=== PATIENT | female | born 1960 | race Caucasian/White ===

== ENCOUNTER → 2017-12-27 | Outpatient (CLI) | payer SELFPAY ==
[~2017-12-27] MED LIST: ALBU90OI; Aspirin; FLUT44OIA; INSUASPI SC; INSULANPEN SC; NAPROXEN; OMEP20ER PO; ZYRTEC
== END | disposition home or self-care (01) ==
LOC: LAB EV 12:24
DX: J03.90 Acute tonsillitis, unspecified (principal)
CPT/HCPCS: 87070

== ENCOUNTER → 2019-02-08 | Outpatient (CLI) | payer OTHER | END | disposition home or self-care (01) | LOC: LAB 18:54 → LAB SHORT 18:54 | PROVIDERS: Nurse Practitioner | DX: Z01.419 Encounter for gynecological examination (general) (routine) without abnormal findings (principal) | CPT/HCPCS: G0145 ==

== ENCOUNTER 2019-05-16 18:57 | Emergency (ER) | payer OTHER ==
[~2019-05-16] VITALS: Ht 165.1 cm; Wt 128.4 kg
[2019-05-16] MEDS ORDERED: ALBU90OI6 INH (19:16)
[2019-05-16] MEDS ORDERED: Humalog100 UNIT/1 (19:16)
[2019-05-16] MEDS ORDERED: BASAGLAR K100 UNIT/1 SQ (19:17)
[2019-05-16] MEDS ORDERED: Flovent 110 MCG12 GM INH (19:17)
== END 2019-05-16 20:03 | disposition home or self-care (01) ==
LOC: ER 18:57
DX: M54.6 Pain in thoracic spine (principal); M54.5 Low back pain; V43.62XA Car passenger injured in collision with other type car in traffic accident, initial encounter; Z88.8 Allergy status to other drugs, medicaments and biological substances; Z88.1 Allergy status to other antibiotic agents; Z88.5 Allergy status to narcotic agent; Z79.4 Long term (current) use of insulin; Z79.899 Other long term (current) drug therapy; E11.9 Type 2 diabetes mellitus without complications; F32.9 Major depressive disorder, single episode, unspecified; K21.9 Gastro-esophageal reflux disease without esophagitis
CPT/HCPCS: 72070; 72100; 99283-25

== ENCOUNTER → 2019-11-22 | Outpatient (CLI) | payer OTHER ==
[~2019-11-22] MED LIST changes: +ALBU90OI6 INH; +BASAGLAR K100 UNIT/1 SQ; +Flovent 110 MCG12 GM INH; +Humalog100 UNIT/1
== END | disposition home or self-care (01) ==
LOC: LAB SHORT 17:35 → LAB EV 17:35
DX: J35.8 Other chronic diseases of tonsils and adenoids (principal)
CPT/HCPCS: 87081; 87147

== ENCOUNTER 2020-12-25 17:02 | Inpatient (IN) | payer OTHER ==
[~2020-12-25] VITALS: Ht 165.1 cm; Wt 131.5 kg
[2020-12-25 17:50] LABS: BASOPHILS ABSOLUTE AUTO 0.03 K/mm3 (0.00-0.23); BASOPHILS PERCENT AUTO 0 % (0-2); EOSINOPHILS ABSOLUTE AUTO 0.06 K/mm3 (0.00-0.68); EOSINOPHILS PERCENT AUTO 1 % (0-6); Hematocrit 41.7 % (33.0-51.0); Hemoglobin 12.5 g/dL (11.5-16.0); IMMATURE GRAN ABSOLUTE AUTO 0.06 K/mm3 (0.00-0.10); IMMATURE GRAN PERCENT AUTO 1 % (0-1); LYMPHOCYTES ABSOLUTE AUTO 2.31 K/mm3 (0.84-5.20); LYMPHOCYTES PERCENT AUTO 24 % (21-46); MONOCYTES ABSOLUTE AUTO 0.74 K/mm3 (0.16-1.47); MONOCYTES PERCENT AUTO 8 % (4-13); Mean Corpuscular HGB 26.9 pg (26.0-34.0); Mean Corpuscular Volume 90 fL (80-100); Mean Platelet Volume 11.7 fL (9.1-12.4); NEUTROPHILS ABSOLUTE AUTO 6.27 K/mm3 (1.96-9.15); NEUTROPHILS PERCENT AUTO 66 % (41-73); Platelet Count 264 K/mm3 (150-400); RDW Coefficient Variation 15.4 % (11.7-14.2); RDW Standard Deviation 50.9 fL (35.1-46.3); Red Blood Cell Count 4.64 M/mm3 (3.80-5.20); White Blood Cell Count 9.47 K/mm3 (4.00-11.30)
[2020-12-25 18:01] LABS: Albumin, Blood 2.8 g/dL (3.4-5.0); Albumin/Globulin Ratio 0.5 (0.8-1.8); Bilirubin, Total 0.4 mg/dL (0.1-1.0); Bun/Creatinine Ratio 13.9 (12.0-20.0); Calcium, Blood 9.7 mg/dL (8.5-10.1); Creatinine, Blood 1.15 mg/dL (0.40-1.00); Globulin, Blood 6.1 g/dL (2.2-4.0); Total Protein, Blood 8.9 g/dL (6.4-8.2); Troponin I 0.367 ng/mL (0.000-0.040)
[2020-12-25 18:37] LABS: Influenza A, PCR NEGATIVE (NEGATIVE); Influenza B, PCR NEGATIVE (NEGATIVE); Resp Syncytial Virus, PCR NEGATIVE (NEGATIVE)
[2020-12-25 18:38] LABS: SARS-Cov-2 (COVID-19) PCR, MMC POSITIVE (NEGATIVE)
[2020-12-25 18:40] LABS: D-Dimer, Quantitative 4.95 mg/L FEU (0.00-0.52); International Normalized Ratio 0.99; Prothrombin Time Results 10.6 Sec (9.7-11.5)
[2020-12-25] MEDS ORDERED: BASAGLAR K100 UNIT/7 SC (18:46)
[2020-12-25] MEDS ORDERED: CIME400 PO (18:48)
[2020-12-25] MEDS ORDERED: CITALOPRAM HBR20 M1 PO ×2 (18:48→22:05)
[2020-12-25] MEDS ORDERED: ADMELOG100 UNIT/2 SC (18:48)
--- NOTE | 2020-12-25 22:37 | NUR ---
ASSUMPTION OF CARE PATIENT ARRIVED TO ROOM AT 2039 VIA STRETCHER. STOOD AND PIVOT TRANSFERRED SELF TO BED. STEADY GAIT. 6L [address] WITH SATS 88-90%. PATIENT COUGHING WITH SCANT SECRETIONS. A/O, ORIENTED PATIENT TO ROOM AND SITUATION. EDUCATED REGARDING PLAN FOR O2 AND SAFETY. POSITIONED IN BED AND RT NOITIFIED OF PATIENT'S ARRIVAL. AT 2129 RT IS IN ROOM ADJUSTING O2 AND ATTEMPTING TO TRY HIGHER LEVELS OF O2 TO BRING O2 SATS UP. AIRVO PLACED AT 45L, 58% FIO2. SATS INCREASED TO 95%. ASSISTED PATIENT TO PRONE AT 2154, PATIENT TOLERATED UNTIL 2219 AND THEN WAS A STANDBY ASSIST TO BEDSIDE COMMODE. TOLERATED WELL, SATS DID NOT DROP BELOW 95% WITH AMBULATION. PATIENT STATED SHE WAS NOT SOB WHILE SITTING STRAIGHT UP. ASSISTED BACK TO BED AND PATIENT STATED SHE COULD NOT TOLERATED PRONING AGAIN, LAID ON FAR RIGHT SIDE. EDUCATED THAT WE WOULD TRY TO PRONE AGAIN IN ONE HOUR, PATIENT WAS EDUCATED REGARDING THE BENEFITS OF PRONING. PATIENT VERBALIZED UNDERSTANDING AND AGREED TO SECOND ATTEMPT. VITALS STABLE AT THIS TIME. CALL LIGHT IS IN REACH.
--- NOTE | 2020-12-26 | NUR ---
REASSESSMENT NO ACUTE CHANGES FROM INITIAL ASSESSMENT. PATIENT DANGLED AT SIDE OF BED AND ATE A JELLO. ATTEMPTED TO PRONE AGAIN BUT IS TOO UNCOMFORTABLE. LAID ON FAR LEFT SIDE. CONTINUING AND ENCOURAGING PATIENT TO PRONE. VITALS STABLE. AIRVO REMAINS AT 45L AND 58%. CALL LIGHT IN REACH.
--- NOTE | 2020-12-26 01:05 | NUR ---
UPDATE PATIENT TOO UNCOMFORTABLE TO PRONE WITH CHRONIC BACK AND SIDE PAIN. REPORTED TO DR. CALLOWAY, RECEIVED ORDERS FOR TYLENOL. REVIEWED ALLERGIES TO MEDICATIONS WITH PATIENT, PATIENT DENIED AN ALLERGY TO TYLENOL STATING SHE TAKES IT AT HOME WITH NO CONCERNS. LILIAM MARQUEZ H[employer]SE [employer]REKKING GUIDE REVIEWING CHART, ORDERED HOME MEDICATIONS AND REVIEWED PAIN MEDICATIONS. EDUCATED PATIENT ON PLAN TO TREAT PAIN AND ATTEMPT PRONING AGAIN. PATIENT IS UP IN CHAIR AT THIS TIME, SATS GREATER THAN 95%. WILL MEDICATE FOR PAIN WHEN PATIENT RETURNS TO BED. CALL LIGHT IN REACH.
--- NOTE | 2020-12-26 02:21 | NUR ---
POSITIONING PATIENT REMAINS UP IN CHAIR, DECLINES TO GO BACK TO BED. STATED TYLENOL HAS HELPED COMFORT. CONTINUED TO EDUCATED PATIENT REGARDING PRONING, PATIENT VERBALIZES UNDERSTANDING BUT PREFERS TO BE UP IN CHAIR AT THIS TIME. WILL MONITOR. CALL LIGHT IN REACH.
--- NOTE | 2020-12-26 04:00 | NUR ---
REASSESSMENT NO ACUTE CHANGES FROM PREVIOUS ASSESSMENT. PATIENT REMAINS UP IN CHAIR. USING CALL LIGHT APPROPRIATELY. STANDBY ASSIST TO BEDSIDE COMMODE FROM CHAIR. PATIENT WITH STEADY GAIT. 02 SATS MAINTAINED ABOVE 90% WITH ACTIVITY. AIRVO REMAINS 45L AND 58%, SATS CURRENTLY ABOVE 95% WHILE RESTING IN CHAIR. PATIENT CONTINUES TO DECLINE TO GO TO BED STATING SHE IS ABLE TO SLEEP WELL IN THE CHAIR. WILL CONTINUE TO MONITOR. CALL LIGHT IN REACH.
--- NOTE | 2020-12-26 06:11 | NUR ---
SHIFT SUMMARY PATIENT REMAINS UP IN CHAIR, AIRVO 45L AND 58%, SATS ABOVE 95% AT THIS TIME. PATIENT STATES SHE IS VERY COMFORTABLE IN THIS POSITION AND CAN BREATH MUCH BETTER THAN LAYING IN BED. NO ACUTE EVENTS THROUGH SHIFT. PATIENT COOPERATIVE AND PLEASANT WITH CARE. VITALS REMAINED STABLE THROUGH NIGHT. CONTINENT OF URINE. WILL CONTINUE TO MONITOR AND REPORT TO ONCOMING RN.
[2020-12-26 06:31] LABS: BASOPHILS ABSOLUTE AUTO 0.01 K/mm3 (0.00-0.23); BASOPHILS PERCENT AUTO 0 % (0-2); EOSINOPHILS PERCENT AUTO 0 % (0-6); Hematocrit 39.6 % (33.0-51.0); Hemoglobin 11.6 g/dL (11.5-16.0); IMMATURE GRAN ABSOLUTE AUTO 0.02 K/mm3 (0.00-0.10); IMMATURE GRAN PERCENT AUTO 0 % (0-1); LYMPHOCYTES ABSOLUTE AUTO 1.52 K/mm3 (0.84-5.20); LYMPHOCYTES PERCENT AUTO 23 % (21-46); MONOCYTES ABSOLUTE AUTO 0.33 K/mm3 (0.16-1.47); MONOCYTES PERCENT AUTO 5 % (4-13); Mean Corpuscular HGB 26.3 pg (26.0-34.0); Mean Corpuscular HGB Conc 29.3 g/dL (31.5-36.5); Mean Corpuscular Volume 90 fL (80-100); NEUTROPHILS ABSOLUTE AUTO 4.85 K/mm3 (1.96-9.15); NEUTROPHILS PERCENT AUTO 72 % (41-73); Platelet Count 265 K/mm3 (150-400); RDW Coefficient Variation 15.1 % (11.7-14.2); RDW Standard Deviation 50.1 fL (35.1-46.3); Red Blood Cell Count 4.41 M/mm3 (3.80-5.20); White Blood Cell Count 6.73 K/mm3 (4.00-11.30)
[2020-12-26 06:49] LABS: Alanine Aminotransfer (ALT/SGP 45 U/L (12-78); Albumin, Blood 2.3 g/dL (3.4-5.0); Albumin/Globulin Ratio 0.4 (0.8-1.8); Alk Phos 91 U/L (50-136); Anion Gap 5 mmol/L (6-16); Aspartate Aminotrans (AST/SGOT 49 U/L (12-37); Bilirubin, Total 0.3 mg/dL (0.1-1.0); Blood Urea Nitrogen 18 mg/dL (8-24); Bun/Creatinine Ratio 18.9 (12.0-20.0); CO2, Blood 27 mmol/L (21-32); Calcium, Blood 8.9 mg/dL (8.5-10.1); Chloride, Blood 106 mmol/L (98-108); Creatinine, Blood 0.95 mg/dL (0.40-1.00); Globulin, Blood 6.1 g/dL (2.2-4.0); Glomerular Filtration Rate >60 (60-); Glucose, Blood 194 mg/dL (70-99); Potassium, Blood 4.5 mmol/L (3.5-5.5); Sodium, Blood 138 mmol/L (136-145); Total Protein, Blood 8.4 g/dL (6.4-8.2)
[2020-12-26 14:09] LABS: C-REACTIVE PROTEIN, EXT RANGE 7.96 mg/dL (0.000-0.300)
--- NOTE | 2020-12-26 18:28 | NUR ---
SUMMARY PT IS A/O X4. ON AIRVO ALL DAY 50L 55%. SPO2 90-94%. PT STATES SOB SEEMS TO BE IMPROVING. PT HAS BEEN ONE PERSON STANDBY ASSIST TO BSC. PT IS ABLE TO DO MOST CARE WITHOUT DESATTING. CALLED LILIAM GARCIA WHO IS COVERING FOR [facility] TO REPORT POSITIVE BLOOD CULTURES THIS EVENING. NO SIGN OF DISTRESS. PT USES CALL LIGHT APPROPRIATELY.
--- NOTE | 2020-12-26 19:15 | NUR ---
ASSUMPTION OF CARE RECEIVED REPORT FROM MAYA MATHEWS. ASSUMED CARE OF PATIENT. PATIENT SITTING UP IN CHAIR, VITALS STABLE ON AIRVO 45L AND 55%. SATS ABOVE 95%. DENIES DISCOMFORTS. IVF INFUSING ORDERED. WILL REVIEW ORDERS AND TREAT PRESCRIBED. CALL LIGHT IN REACH.
--- NOTE | 2020-12-27 | NUR ---
REASSESSMENT NO ACUTE CHANGES FROM PREVIOUS ASSESSMENT. PATIENT DENIES DISCOMFORTS, CONTINUES TO SIT UP IN RECLINER STATING SHE IS VERY COMFORTABLE. FIO2 DECREASED TO 50% PER RT. SATS ABOVE 95%. VITALS STABLE. CALL LIGHT IN REACH.
[2020-12-27 03:56] LABS: C-REACTIVE PROTEIN, EXT RANGE 5.4 mg/dL (0.000-0.300)
--- NOTE | 2020-12-27 04:00 | NUR ---
REASSESSMENT NO ACUTE CHANGES FROM PREVIOUS ASSESSMENT. PATIENT REMAINS UP IN CHAIR. AIRVO SETTINGS 45L AND 50%. SATS ABOVE 95%. VITALS STABLE. CALL LIGHT IN REACH.
--- NOTE | 2020-12-27 06:12 | NUR ---
SHIFT SUMMARY NO ACUTE CHANGES THROUGH NIGHT. PATIENT REMAINED RESTING IN CHAIR COMFORTABLY. USES BEDSIDE COMMODE WITH RN ASSISTANCE. AIRVO 45L AND 50%. SATS REMAIN ABOVE 95%. VITALS STABLE THROUGH NIGHT. WILL CONTINUE TO MONITOR AND REPORT TO ONCOMING RN.
--- NOTE | 2020-12-27 07:15 | NUR ---
Assumed care of pt at 0700. Bedside report received from Nanette MATHEWS. Pt in airborne precautions due to COVID-19 with aerosolizing oxygen delivery device. SpO2 90% or greater with 45 LPM and 53% FiO2. Lungs diminished t/o. Pt's bedside table has several tissues that she expectorated into with clear sputum. SR per monitor. Pt sitting up in chair, likes to sleep in chair.
--- NOTE | 2020-12-27 09:56 | NUR ---
LAMICTAL / COZAAR During AM medication pass, this RN explained the medications the pt was receiving, including notations about formulary substitution. "You are getting lamotrigine, or lamictal. You are getting this twice a day because we don't have the extended release version, which you take at home". Pt nodded in agreeance. "You are getting losartan potassium, or cozaar. This is a substitution for candesartan, which you take at home"- pt stated this did not sound familiar. Pt does not take BP meds at home. This RN could not find this medication in med reconciliation. This medication held. This RN placed call to pharmacy to inquire about this medication as it was entered by pharmacy. Spoke to pharmacist, Jerri. Jerri stated she would investigate this matter. Jerri called back to notify that there were no provider orders for Cozaar or Lamictal for this patient and she would discontinue these medications. This RN notified patient that she has received two doses of lamotrigine although she does not take these at home. Notified pt that she may experiece drowsiness and we will continue to closely monitor her. Per Jerri simon, pt received a small dose of this medication and this medication will not interact with other medications pt is receiving.
--- NOTE | 2020-12-27 10:09 | NUR ---
AZITHROMYCIN Pt states allergy to erythromycin. This RN inquired what reaction she has. Pt stated she experiences vomiting. Notified pharmacist, Jerri. Plan to continue to administer medication. This matter discussed with patient, patient agreeable to receiving medication. States she will notify nurse if she feels nauseous. Patient inquires "What medication is in a Z-Pack?" This RN educates that the medication pt is receiving, azithromycin, is the medication in a Z-Pack. Pt states she had mild nausea without vomiting when she previously took a Z-Pack.
--- NOTE | 2020-12-27 17:36 | NUR ---
DR KNUTSON IN TO SEE PATIENT Discussed lamicatal given to patient. No new orders. Discussed biphasic T wave and new T wave inversion in V1. Inquired if provider would like troponin, EKG, or echocardiogram ordered. Provider stated no, becuase these changes are COVID related. Discusesd that pt has not had labs since yesterday morning. Provider gave orders for BMP now and tomorrow morning. Discussed with provider that pt has had high blood sugars. Reviewed solumedrol dosing. Provider changed insulin orders. Discussed that pt is having excellent PO intake of fluids, provider stated that IV fluids may be discontinued.
--- NOTE | 2020-12-27 18:19 | NUR ---
SUMMARY Pt remains on 45 LPM flow AirVO with 53% FiO2. SpO2 90% or greater. Pt remains in recliner. SR per monitor. BP stable. Will continue to closely monitor until care handoff and bedside report with oncoming RN.
[2020-12-27 18:33] LABS: Anion Gap 6 mmol/L (6-16); Blood Urea Nitrogen 29 mg/dL (8-24); Bun/Creatinine Ratio 34.9 (12.0-20.0); CO2, Blood 26 mmol/L (21-32); Calcium, Blood 9.3 mg/dL (8.5-10.1); Chloride, Blood 104 mmol/L (98-108); Creatinine, Blood 0.83 mg/dL (0.40-1.00); Glomerular Filtration Rate >60 (60-); Glucose, Blood 341 mg/dL (70-99); Potassium, Blood 4.7 mmol/L (3.5-5.5); Sodium, Blood 136 mmol/L (136-145)
--- NOTE | 2020-12-27 21:26 | NUR ---
ASSUMED CARE AT 1900 PT UP IN A CHAIR AND IS ALERT/ORIENTED AND IS ABLE TO MAKE HER NEEDS KNOWN. PT STATED TO HAVE SOME PAIN IN HER LT HIP THAT IS A CHRONIC ISSUE AND TAKES PRN TYLENOL AT HOME TO MANAGE. PRN TYLENOL GIVEN AND HELPFUL. SPO2 >95% ON AIRVO 45L, FIO2 45 %; SOME DYSPNEA ON EXERTION AND EXCESSIVE TALKING. AFIBRILE. HR 60-70'S. BP STABLE. BLE SHOW NON-PITTING, DEPENDENT EDEMA. PT ASKED FOR HALF A TURKEY SANDWICH AND TOLERATED WELL. SALINE LOCKED. SEE SHIFT ASSESSMENT FOR FULL ASSESSMENT.
[2020-12-28 03:57] LABS: Anion Gap 6 mmol/L (6-16); Blood Urea Nitrogen 32 mg/dL (8-24); Bun/Creatinine Ratio 38.4 (12.0-20.0); CO2, Blood 25 mmol/L (21-32); Calcium, Blood 8.9 mg/dL (8.5-10.1); Chloride, Blood 104 mmol/L (98-108); Creatinine, Blood 0.83 mg/dL (0.40-1.00); Glomerular Filtration Rate >60 (60-); Glucose, Blood 308 mg/dL (70-99); Potassium, Blood 4.9 mmol/L (3.5-5.5); Sodium, Blood 135 mmol/L (136-145)
--- NOTE | 2020-12-28 06:27 | NUR ---
END OF SHIFT SUMMARY PT SLEPT FOR ABOUT 6HRS IN CHAIR. PT ALERT/ORIENTED AND ABLE TO MAKE NEEDS KNOWN. SPO2 >90% ON AIRVO 45L, FIO2 36%. HR 50-70. SBP 110-140. PT SALINE LOCKED. PT WAS ABLE TO TOLERATE HALF A TURKEY SANDWICH. WILL REPORT TO AM RN WHEN AVAILABLE.
--- NOTE | 2020-12-28 07:07 | NUR ---
Assumed care of pt at 0700. Bedside report recevied from Cornelia MATHEWS. Pt A&O x 4. Answers questions. Follows commands. Verbalizes needs. Pleasant and cooperative with care. SpO2 90% or greater with AirVO at 40L and 36% FiO2. Lungs diminished t/o. Sinus bradycardia per monitor with HR between 45 and 55. BP stable. Pt sitting up in recliner. Call light in reach.
--- NOTE | 2020-12-28 07:16 | NUR ---
Respiratory therapist in to see pt. States he took patient off AirVo and placed her on high flow nasal cannula with 8 LPM.
--- NOTE | 2020-12-28 09:30 | NUR ---
Dr Kasper in to see patient. Discussed pt's oxygen requirements. States pt is acceptable for medical floor status with telemetry.
--- NOTE | 2020-12-28 13:27 | NUR ---
12/28/20- per chart review with Dr. Kasper, pt is off of Airvo and has been placed on O2-8L. He feels that she has improved enought to be moved out of ICU and onto the medical floor. She is still on airborne precautions due to positive COVID. No est ETA for d/c at this time. -mone
--- NOTE | 2020-12-28 19:37 | NUR ---
SUMMARY No acute changes this shift. Pt is now medical floor status with telemetry. SR per monitior. Pt remains in recliner as this is where she is most comfortable. Mobility increased compared to previous day shift. Pt remains on 8 LPM NC. SpO2 90% or greater. Report given to oncoming RNJacob.
--- NOTE | 2020-12-28 20:00 | NUR ---
ASSUMED CARE OF PT AT 1915. REPORT RECEIVED. PT PRESENTS SITTING UP IN BEDSIDE RECLINER CHAIR. PT ALERT AND ORIENTED. PLEASANT AND COOPERATIVE WITH CARE AND ASSESSMENT. UP TO BEDSIDE COMMODE WITH MINIMAL ASSIST OTHER THAN LINES AND CORDS. PT VOIDS Q.S. DOES HAVE MILD EXERTIONAL DYSPNEA. OCCASSIONAL MOIST COUGH WITH CLEAR SECRETIONS. WILL REVIEW CHART AND PLAN OF CARE FOR THIS PT.
--- NOTE | 2020-12-28 23:55 | NUR ---
PT STATES SHE PREFERS TO SLEEP IN RECLINER CHAIR. THIS IS WHAT SHE DOES AT HOME. HAD COMPLAINT OF HER SIDE AND HIP HURTING. REQUESTED AND RECEIVED TYLENOL. NO FURTHER COMPLAINTS RECEIVED. PT UP TO BEDSIDE COMMODE SEVERAL TIMES THIS EVENING WHERE SHE HAS VOIDED Q.S. PT NEEDS ONLY ASSIST WITH CORDS AND LINES FOR TRANSFER. WILL CONTINUE TO MONITOR.
[2020-12-29 03:59] LABS: BASOPHILS ABSOLUTE AUTO 0.01 K/mm3 (0.00-0.23); BASOPHILS PERCENT AUTO 0 % (0-2); EOSINOPHILS PERCENT AUTO 0 % (0-6); Hematocrit 36.8 % (33.0-51.0); Hemoglobin 11.1 g/dL (11.5-16.0); IMMATURE GRAN ABSOLUTE AUTO 0.08 K/mm3 (0.00-0.10); IMMATURE GRAN PERCENT AUTO 1 % (0-1); LYMPHOCYTES ABSOLUTE AUTO 1.43 K/mm3 (0.84-5.20); LYMPHOCYTES PERCENT AUTO 13 % (21-46); MONOCYTES ABSOLUTE AUTO 0.52 K/mm3 (0.16-1.47); MONOCYTES PERCENT AUTO 5 % (4-13); Mean Corpuscular HGB 26.2 pg (26.0-34.0); Mean Corpuscular HGB Conc 30.2 g/dL (31.5-36.5); Mean Corpuscular Volume 87 fL (80-100); NEUTROPHILS ABSOLUTE AUTO 8.95 K/mm3 (1.96-9.15); NEUTROPHILS PERCENT AUTO 82 % (41-73); Platelet Count 272 K/mm3 (150-400); RDW Coefficient Variation 14.8 % (11.7-14.2); RDW Standard Deviation 47.6 fL (35.1-46.3); Red Blood Cell Count 4.24 M/mm3 (3.80-5.20); White Blood Cell Count 10.99 K/mm3 (4.00-11.30)
[2020-12-29 04:15] LABS: Albumin, Blood 2.3 g/dL (3.4-5.0); Albumin/Globulin Ratio 0.4 (0.8-1.8); Alk Phos 73 U/L (50-136); Anion Gap 5 mmol/L (6-16); Aspartate Aminotrans (AST/SGOT 39 U/L (12-37); Bilirubin, Total 0.4 mg/dL (0.1-1.0); Blood Urea Nitrogen 37 mg/dL (8-24); Bun/Creatinine Ratio 41.4 (12.0-20.0); CO2, Blood 28 mmol/L (21-32); Calcium, Blood 9.1 mg/dL (8.5-10.1); Chloride, Blood 103 mmol/L (98-108); Creatinine, Blood 0.89 mg/dL (0.40-1.00); Globulin, Blood 5.2 g/dL (2.2-4.0); Glomerular Filtration Rate >60 (60-); Glucose, Blood 207 mg/dL (70-99); Lactate Dehydrogenase (Ld),Bld 278 U/L (100-240); Potassium, Blood 4.8 mmol/L (3.5-5.5); Sodium, Blood 136 mmol/L (136-145); Total Protein, Blood 7.5 g/dL (6.4-8.2)
[2020-12-29 05:05] LABS: Alanine Aminotransfer (ALT/SGP 49 U/L (12-78)
--- NOTE | 2020-12-29 06:30 | NUR ---
PT REMAINS IN THE BEDSIDE RECLINER CHAIR THROUGHOUT THE NIGHT. NO COMPLAINTS OF INCREASED DYSPNEA. CALLS FOR ASSIST TO GET UP TO BEDSIDE COMMODE. VOIDS Q.S. WILL CONTINUE TO MONITOR PT, AND WILL REPORT OFF TO ONCOMING RN.
--- NOTE | 2020-12-29 16:00 | NUR ---
Dr Butcher in to see patient. Provider states pt may be taken off telemetry. Provider gives no additional orders. States discharge can be considered when O2 requirements are less than 3 liters.
--- NOTE | 2020-12-29 18:26 | NUR ---
SUMMARY No acute changes to initial assessment. Pt is medical floor status, now without telemetry ordered. Pt on 4.5 LPM which is a decrease from 5 LPM at beginning of shift. Lungs diminished t/o. Very little sputum produced compared to previous day shifts. Pt in increasing in strength and only requires cord/line managment for toileting and ADLs. Will continue to closely monitor until care handoff and bedside report with oncoming RN.
--- NOTE | 2020-12-30 06:23 | NUR ---
SHIFT SUMMARY NO ACUTE CHANGES THIS SHIFT. PT A&OX4. SP02>92% ON 4.5L HIFLO NC. PT HAD MILD SOB W/ EXERTION. VSS. PT UP TO BEDSIDE COMMODE WITH MINIMAL HELP FOR LINE MANAGEMENT. PT C/O OF LL ABDOMINAL PAIN, BUT DENIED MEDICATION. STATES SHE WILL TAKE A TYLENOL IF IT GETS TO THAT POINT. PT SLEPT T/O NIGHT IN RECLINER, PT STATES SHE BREATHES BETTER IN CHAIR. AT ONE POINT, PT WAS SLEEPING AND DESATTED TO 86%. UPON ENTERING PT ROOM, NC WAS HANGING AROUND NECK OUT OF NARES. REPLACED AND PT INCREASED TO 94%. PT USES CALL LIGHT APPROPRIATELY. CALL LIGHT IN REACH. WILL GIVE REPORT TO ONCOMING NURSE.
--- NOTE | 2020-12-30 08:00 | NUR ---
PT UP INDEPENDENT WITH SBA IN HER ROOM. PT ON 4L/NC TOLERATING WELL. LUNGS DIMINISHED T/O. GOOD BOWEL TONES,URINE OUTPUT,HEART TONES AND RHYTHM. PT WITH SOME EDEMA TO LOWER EXTREMITIES. SHE STATES SHE REALIZES THAT SITTING UP IN THE CHAIR SLEEPING IS CAUSING SOME OF THIS AND WILL WORK ON PUTTING HER LEGS UP. BLOOD SUGARS REMAIN ELEVATED, COVERAGE INDICATED. PT TALKED WITH IN REGARDS TO GOING HOME LATER IF SHE TOLERATES THE OXYGEN BEING TITRATED DOWN TO LESS THAN 3L/NC. SHE SEEMS EXCITED, AT LEAST LOOKING FORWARD TO GOING HOME AND BEING INDEPENDENT.
--- NOTE | 2020-12-30 09:00 | NUR ---
CONTACTED IN REGARDS TO PATIENTS IV'S LEAKING AND NOT R/S R/T POSSIBILITY OF GOING HOME TODAY. ORAL ANTIBIOTIC ORDER RECEIVED. PT HAPPY WITH NOT HAVING IV'S RESTARTED. DOING WELL ON NASAL CANNULA.
--- NOTE | 2020-12-30 10:00 | NUR ---
PT UP INDEPEDENTLY WITH SBA TO BSC AND SINK IN HER OWN ROOM. PT ALWAYS ASKS FIRST, REMAINS ON NASAL CANNULA, DOWN TO 3L. TOLERATING WELL.
--- NOTE | 2020-12-30 12:00 | NUR ---
PT CONTINUES TO DO WELL ON N/C. SHE IS DOWN TO 2L AND TOLERATING WELL. SHE DOES STATE THAT SHE IS FEELING A LITTLE SHORT OF BREATH ON LESS, BUT IS DOING OK. LUNGS REMAIN DIMINISHED THROUGHOUT,DRY COUGH PRESENT.
--- NOTE | 2020-12-30 14:00 | NUR ---
ORDERS RECEIVED FOR PATIENT TO BE DISCHARGED HOME WITH OXYGEN. HOME O2 STUDY TO BE COMPLETED. PT HAPPY WITH DECISION TO GO HOME.
--- NOTE | 2020-12-30 16:00 | NUR ---
HOME OXYGEN CYLINDER DELIVERED HERE, PT GIVEN INSTRUCTIONS ON USE,DISCHARGE INSTRUCTIONS GIVEN TO PATIENT, QUESTIONS ANSWERED. PT REMOVED FROM MONITORS, TOLD TO GET DRESSED, LET ME KNOW IF SHE NEEDS ANYTHING. WILL AWAIT FOR RIDE.
--- NOTE | 2020-12-30 17:00 | NUR ---
PT GOT IN TO WHEELCHAIR, HAD HER BELONGINGS,ROOM CHECKED FOR LEFTOVERS, TEO TOOK HER TO HER WHO WAS WAITING IN THE CAR.
== END 2020-12-30 16:51 | disposition home or self-care (01) | DRG 871 ==
LOC: ER 17:02 → ICUE 19:00 → ERHOLD 19:00 → ICUE 20:30
PROVIDERS: Emergency Medicine; Hospitalist; Internal Medicine; Nurse Practitioner Acute Care; ADMIT Internal Medicine
PROC: XW033E5 Introduction of Remdesivir Anti-infective into Peripheral Vein, Percutaneous Approach, New Technology Group 5 (ICD-10-PCS; principal; 2020-12-25)
PROC: XW033E5 Introduction of Remdesivir Anti-infective into Peripheral Vein, Percutaneous Approach, New Technology Group 5 (ICD-10-PCS; 2020-12-26)
PROC: XW033E5 Introduction of Remdesivir Anti-infective into Peripheral Vein, Percutaneous Approach, New Technology Group 5 (ICD-10-PCS; 2020-12-27)
PROC: XW033E5 Introduction of Remdesivir Anti-infective into Peripheral Vein, Percutaneous Approach, New Technology Group 5 (ICD-10-PCS; 2020-12-28)
PROC: XW033E5 Introduction of Remdesivir Anti-infective into Peripheral Vein, Percutaneous Approach, New Technology Group 5 (ICD-10-PCS; 2020-12-29)
DX: A41.89 Other specified sepsis (principal); U07.1 COVID-19; J12.82 Pneumonia due to coronavirus disease 2019; J96.01 Acute respiratory failure with hypoxia; Z68.42 Body mass index [BMI] 45.0-49.9, adult; J45.901 Unspecified asthma with (acute) exacerbation; Z79.4 Long term (current) use of insulin; E11.51 Type 2 diabetes mellitus with diabetic peripheral angiopathy without gangrene; E66.01 Morbid (severe) obesity due to excess calories; F32.9 Major depressive disorder, single episode, unspecified; K21.9 Gastro-esophageal reflux disease without esophagitis; E11.65 Type 2 diabetes mellitus with hyperglycemia; T38.0X5A Adverse effect of glucocorticoids and synthetic analogues, initial encounter; Y92.230 Patient room in hospital as the place of occurrence of the external cause
CPT/HCPCS: 0241U; 36415; 71045; 80048; 80053; 82550; 82728; 82947; 83605; 83615; 83880; 84484; 85025; 85379; 85610; 85730; 86140; 87040; 93005; 93010; 94640; 94761; 99285-25; A9270; J0690; J0696; J1650; J2920; J2930; J3010; J7030; J7050

== ENCOUNTER 2021-05-13 23:07 | Emergency (ER) | payer OTHER ==
[~2021-05-13] VITALS: Ht 165.1 cm; Wt 136.1 kg
[~2021-05-13 23:07] MED LIST changes: +ADMELOG100 UNIT/2 SC; +BASAGLAR K100 UNIT/7 SC; +CIME400 PO; +CITALOPRAM HBR20 M1 PO
[2021-05-14 00:23] LABS: BASOPHILS ABSOLUTE AUTO 0.06 K/mm3 (0.00-0.23); BASOPHILS PERCENT AUTO 1 % (0-2); EOSINOPHILS ABSOLUTE AUTO 0.53 K/mm3 (0.00-0.68); EOSINOPHILS PERCENT AUTO 4 % (0-6); Hematocrit 36.5 % (33.0-51.0); Hemoglobin 11.1 g/dL (11.5-16.0); IMMATURE GRAN ABSOLUTE AUTO 0.05 K/mm3 (0.00-0.10); IMMATURE GRAN PERCENT AUTO 0 % (0-1); LYMPHOCYTES ABSOLUTE AUTO 3.24 K/mm3 (0.84-5.20); LYMPHOCYTES PERCENT AUTO 27 % (21-46); MONOCYTES ABSOLUTE AUTO 0.76 K/mm3 (0.16-1.47); MONOCYTES PERCENT AUTO 6 % (4-13); Mean Corpuscular HGB 27.5 pg (26.0-34.0); Mean Corpuscular HGB Conc 30.4 g/dL (31.5-36.5); Mean Corpuscular Volume 91 fL (80-100); Mean Platelet Volume 11.3 fL (9.1-12.4); NEUTROPHILS ABSOLUTE AUTO 7.38 K/mm3 (1.96-9.15); NEUTROPHILS PERCENT AUTO 61 % (41-73); Platelet Count 284 K/mm3 (150-400); RDW Coefficient Variation 15.8 % (11.7-14.2); RDW Standard Deviation 52.5 fL (35.1-46.3); Red Blood Cell Count 4.03 M/mm3 (3.80-5.20); White Blood Cell Count 12.02 K/mm3 (4.00-11.30)
[2021-05-14 00:44] LABS: Alanine Aminotransfer (ALT/SGP 18 U/L (12-78); Albumin/Globulin Ratio 0.5 (0.8-1.8); Alk Phos 79 U/L (50-136); Anion Gap 4 mmol/L (6-16); Aspartate Aminotrans (AST/SGOT 15 U/L (12-37); Bilirubin, Total 0.3 mg/dL (0.1-1.0); Blood Urea Nitrogen 14 mg/dL (8-24); CO2, Blood 30 mmol/L (21-32); Calcium, Blood 9.9 mg/dL (8.5-10.1); Chloride, Blood 101 mmol/L (98-108); Creatinine, Blood 0.93 mg/dL (0.40-1.00); Globulin, Blood 5.7 g/dL (2.2-4.0); Glomerular Filtration Rate >60 (60-); Glucose, Blood 120 mg/dL (70-99); Potassium, Blood 4.4 mmol/L (3.5-5.5); Sodium, Blood 135 mmol/L (136-145); Total Protein, Blood 8.7 g/dL (6.4-8.2)
[2021-05-14] MEDS ORDERED: ONDA4ODT MM (04:56)
== END 2021-05-14 05:23 | disposition home or self-care (01) ==
LOC: ER 23:07
PROVIDERS: Physician Assistant
DX: T67.5XXA Heat exhaustion, unspecified, initial encounter (principal); E11.9 Type 2 diabetes mellitus without complications; Z79.4 Long term (current) use of insulin; Z88.1 Allergy status to other antibiotic agents; Z88.5 Allergy status to narcotic agent; Z79.899 Other long term (current) drug therapy
CPT/HCPCS: 71046; 80053; 85025; 96361; 96374; 96375; 99284-25; A9270; J2405; J2550; J7030

== ENCOUNTER → 2021-08-08 | Outpatient (CLI) | payer OTHER ==
[~2021-08-08] MED LIST changes: +ONDA4ODT MM
== END ==
LOC: LAB SHORT 13:21 → LAB 13:21
DX: N95.0 Postmenopausal bleeding (principal); N85.8 Other specified noninflammatory disorders of uterus; Z88.8 Allergy status to other drugs, medicaments and biological substances; Z88.5 Allergy status to narcotic agent; Z88.1 Allergy status to other antibiotic agents
CPT/HCPCS: 88305

== ENCOUNTER 2023-01-22 02:28 | Day surgery (SDC) | payer OTHER | END 2023-01-22 23:16 | disposition home or self-care (01) | LOC: WOUND 02:28 | DX: E11.622 Type 2 diabetes mellitus with other skin ulcer (principal); L97.812 Non-pressure chronic ulcer of other part of right lower leg with fat layer exposed; I87.2 Venous insufficiency (chronic) (peripheral); L97.822 Non-pressure chronic ulcer of other part of left lower leg with fat layer exposed; J45.909 Unspecified asthma, uncomplicated; I10 Essential (primary) hypertension | CPT/HCPCS: G0463 ==

== ENCOUNTER 2023-01-29 02:21 | Day surgery (SDC) | payer OTHER | END 2023-01-29 22:36 | disposition home or self-care (01) | LOC: WOUND 02:21 | DX: E11.622 Type 2 diabetes mellitus with other skin ulcer (principal); J45.909 Unspecified asthma, uncomplicated; I10 Essential (primary) hypertension; E11.51 Type 2 diabetes mellitus with diabetic peripheral angiopathy without gangrene | CPT/HCPCS: G0463 ==

== ENCOUNTER 2023-02-05 00:44 | Day surgery (SDC) | payer OTHER | END 2023-02-05 23:01 | disposition home or self-care (01) | LOC: WOUND 00:44 | DX: E11.622 Type 2 diabetes mellitus with other skin ulcer (principal); L97.822 Non-pressure chronic ulcer of other part of left lower leg with fat layer exposed; L97.812 Non-pressure chronic ulcer of other part of right lower leg with fat layer exposed; E11.51 Type 2 diabetes mellitus with diabetic peripheral angiopathy without gangrene; I87.2 Venous insufficiency (chronic) (peripheral) | CPT/HCPCS: G0463 ==

== ENCOUNTER 2023-02-12 03:39 | Day surgery (SDC) | payer OTHER | END 2023-02-12 22:59 | disposition home or self-care (01) | LOC: WOUND 03:39 | DX: E11.51 Type 2 diabetes mellitus with diabetic peripheral angiopathy without gangrene (principal); I87.2 Venous insufficiency (chronic) (peripheral) ==

== ENCOUNTER 2023-02-19 02:26 | Day surgery (SDC) | payer OTHER | END 2023-02-19 23:00 | disposition home or self-care (01) | LOC: WOUND 02:26 | DX: I87.313 Chronic venous hypertension (idiopathic) with ulcer of bilateral lower extremity (principal); E11.622 Type 2 diabetes mellitus with other skin ulcer; L97.812 Non-pressure chronic ulcer of other part of right lower leg with fat layer exposed; L97.821 Non-pressure chronic ulcer of other part of left lower leg limited to breakdown of skin; I87.2 Venous insufficiency (chronic) (peripheral); E11.51 Type 2 diabetes mellitus with diabetic peripheral angiopathy without gangrene; I10 Essential (primary) hypertension; J45.909 Unspecified asthma, uncomplicated ==

== ENCOUNTER 2023-02-26 02:46 | Day surgery (SDC) | payer OTHER | END 2023-02-26 22:49 | disposition home or self-care (01) | LOC: WOUND 02:46 | DX: I87.313 Chronic venous hypertension (idiopathic) with ulcer of bilateral lower extremity (principal); L97.812 Non-pressure chronic ulcer of other part of right lower leg with fat layer exposed; L97.829 Non-pressure chronic ulcer of other part of left lower leg with unspecified severity; L97.821 Non-pressure chronic ulcer of other part of left lower leg limited to breakdown of skin; E11.622 Type 2 diabetes mellitus with other skin ulcer; I87.2 Venous insufficiency (chronic) (peripheral); I73.9 Peripheral vascular disease, unspecified; E11.8 Type 2 diabetes mellitus with unspecified complications | CPT/HCPCS: A9270 ==

== ENCOUNTER 2023-03-05 01:21 | Day surgery (SDC) | payer OTHER | END 2023-03-05 23:01 | disposition home or self-care (01) | LOC: WOUND 01:21 | DX: I87.313 Chronic venous hypertension (idiopathic) with ulcer of bilateral lower extremity (principal); E11.622 Type 2 diabetes mellitus with other skin ulcer; L97.812 Non-pressure chronic ulcer of other part of right lower leg with fat layer exposed; L97.821 Non-pressure chronic ulcer of other part of left lower leg limited to breakdown of skin; I87.2 Venous insufficiency (chronic) (peripheral); I73.9 Peripheral vascular disease, unspecified; E11.8 Type 2 diabetes mellitus with unspecified complications | CPT/HCPCS: G0463 ==

== ENCOUNTER → 2023-10-08 | Outpatient (CLI) | payer OTHER ==
[2023-10-08 14:47] LABS: Candida species (DNA Probe) Positive (NEGATIVE); G. vaginalis (DNA Probe) Negative (NEGATIVE); T. vaginalis (DNA Probe) Negative (NEGATIVE)
[2023-10-14 13:09] LABS: HPV 16 Negative (Negative); HPV 18 Negative (Negative); HPV OTHER HR TYPES Negative (Negative)
== END | disposition home or self-care (01) ==
LOC: LAB SHORT 10:37 → LAB 10:37
PROVIDERS: Obstetrics & Gynecology
DX: Z01.419 Encounter for gynecological examination (general) (routine) without abnormal findings (principal); B37.31 Acute candidiasis of vulva and vagina
CPT/HCPCS: 87480; 87510; 87660

== ENCOUNTER 2025-01-31 01:39 | Day surgery (SDC) | payer OTHER | END 2025-01-31 23:20 | disposition home or self-care (01) | LOC: WOUND 01:39 | DX: E11.622 Type 2 diabetes mellitus with other skin ulcer (principal); L97.822 Non-pressure chronic ulcer of other part of left lower leg with fat layer exposed; L97.812 Non-pressure chronic ulcer of other part of right lower leg with fat layer exposed; I87.313 Chronic venous hypertension (idiopathic) with ulcer of bilateral lower extremity; I87.2 Venous insufficiency (chronic) (peripheral); E11.51 Type 2 diabetes mellitus with diabetic peripheral angiopathy without gangrene | CPT/HCPCS: G0463 ==

== ENCOUNTER 2025-02-07 02:21 | Day surgery (SDC) | payer OTHER | END 2025-02-07 22:50 | disposition home or self-care (01) | LOC: WOUND 02:21 | DX: I87.313 Chronic venous hypertension (idiopathic) with ulcer of bilateral lower extremity (principal); L97.812 Non-pressure chronic ulcer of other part of right lower leg with fat layer exposed; L97.822 Non-pressure chronic ulcer of other part of left lower leg with fat layer exposed; E11.622 Type 2 diabetes mellitus with other skin ulcer; I87.2 Venous insufficiency (chronic) (peripheral); E11.51 Type 2 diabetes mellitus with diabetic peripheral angiopathy without gangrene; I10 Essential (primary) hypertension; J45.909 Unspecified asthma, uncomplicated | CPT/HCPCS: G0463 ==

== ENCOUNTER 2025-02-14 00:26 | Day surgery (SDC) | payer OTHER ==
[2025-02-14] MEDS ORDERED: Lidocaine HCl 4% Cream 5 GM ONE (09:22)
== END 2025-02-14 23:00 | disposition home or self-care (01) ==
LOC: WOUND 00:26
DX: E11.622 Type 2 diabetes mellitus with other skin ulcer (principal); L97.812 Non-pressure chronic ulcer of other part of right lower leg with fat layer exposed; L97.822 Non-pressure chronic ulcer of other part of left lower leg with fat layer exposed; L98.491 Non-pressure chronic ulcer of skin of other sites limited to breakdown of skin; I87.313 Chronic venous hypertension (idiopathic) with ulcer of bilateral lower extremity; I87.2 Venous insufficiency (chronic) (peripheral); E11.51 Type 2 diabetes mellitus with diabetic peripheral angiopathy without gangrene; I10 Essential (primary) hypertension; J45.909 Unspecified asthma, uncomplicated
CPT/HCPCS: A9270

== ENCOUNTER 2025-02-16 01:29 | Day surgery (SDC) | payer OTHER | END 2025-02-16 23:00 | disposition home or self-care (01) | LOC: WOUND 01:29 | DX: I87.313 Chronic venous hypertension (idiopathic) with ulcer of bilateral lower extremity (principal); E11.622 Type 2 diabetes mellitus with other skin ulcer; L97.812 Non-pressure chronic ulcer of other part of right lower leg with fat layer exposed; L97.822 Non-pressure chronic ulcer of other part of left lower leg with fat layer exposed; I87.2 Venous insufficiency (chronic) (peripheral); E11.51 Type 2 diabetes mellitus with diabetic peripheral angiopathy without gangrene ==

== ENCOUNTER 2025-02-21 01:14 | Day surgery (SDC) | payer OTHER ==
[2025-02-21] MEDS ORDERED: Triamcinolone Acet 0.1% Cream 15 gm ONE (09:06)
== END 2025-02-21 23:00 | disposition home or self-care (01) ==
LOC: WOUND 01:14
DX: I87.313 Chronic venous hypertension (idiopathic) with ulcer of bilateral lower extremity (principal); E11.622 Type 2 diabetes mellitus with other skin ulcer; L97.822 Non-pressure chronic ulcer of other part of left lower leg with fat layer exposed; L97.812 Non-pressure chronic ulcer of other part of right lower leg with fat layer exposed; I87.2 Venous insufficiency (chronic) (peripheral); E11.51 Type 2 diabetes mellitus with diabetic peripheral angiopathy without gangrene; I10 Essential (primary) hypertension; J45.909 Unspecified asthma, uncomplicated
CPT/HCPCS: A9270

== ENCOUNTER 2025-02-28 01:38 | Day surgery (SDC) | payer OTHER ==
[2025-02-28] MEDS ORDERED: Lidocaine HCl 4% Topical Soln 50 ML BTL ONE (08:59)
[2025-02-28] MEDS ORDERED: Triamcinolone Acet 0.1% Cream 15 gm ONE (09:28)
== END 2025-02-28 23:00 | disposition home or self-care (01) ==
LOC: WOUND 01:38
DX: E11.622 Type 2 diabetes mellitus with other skin ulcer (principal); I87.313 Chronic venous hypertension (idiopathic) with ulcer of bilateral lower extremity; L97.812 Non-pressure chronic ulcer of other part of right lower leg with fat layer exposed; L97.822 Non-pressure chronic ulcer of other part of left lower leg with fat layer exposed; I87.2 Venous insufficiency (chronic) (peripheral); I73.9 Peripheral vascular disease, unspecified; E11.8 Type 2 diabetes mellitus with unspecified complications; J45.909 Unspecified asthma, uncomplicated; I10 Essential (primary) hypertension
CPT/HCPCS: A6196; A9270

== ENCOUNTER → 2025-03-07 | Day surgery (SDC) | payer OTHER | LOC: WOUND 12:28 | DX: E11.622 Type 2 diabetes mellitus with other skin ulcer (principal); I87.313 Chronic venous hypertension (idiopathic) with ulcer of bilateral lower extremity; L97.812 Non-pressure chronic ulcer of other part of right lower leg with fat layer exposed; L97.822 Non-pressure chronic ulcer of other part of left lower leg with fat layer exposed; I87.2 Venous insufficiency (chronic) (peripheral); E11.51 Type 2 diabetes mellitus with diabetic peripheral angiopathy without gangrene; E11.8 Type 2 diabetes mellitus with unspecified complications; I10 Essential (primary) hypertension; J45.909 Unspecified asthma, uncomplicated ==

== ENCOUNTER 2025-03-14 08:18 | Day surgery (SDC) | payer OTHER ==
[2025-03-14] MEDS ORDERED: Lidocaine HCl 4% Cream 5 GM ONE (09:48)
[2025-03-14] MEDS ORDERED: Triamcinolone Acet 0.1% Cream 15 gm ONE (10:11)
== END 2025-03-14 23:00 | disposition home or self-care (01) ==
LOC: WOUND 08:18
DX: I87.313 Chronic venous hypertension (idiopathic) with ulcer of bilateral lower extremity (principal); L97.822 Non-pressure chronic ulcer of other part of left lower leg with fat layer exposed; L97.812 Non-pressure chronic ulcer of other part of right lower leg with fat layer exposed; E11.622 Type 2 diabetes mellitus with other skin ulcer; I87.2 Venous insufficiency (chronic) (peripheral); E11.51 Type 2 diabetes mellitus with diabetic peripheral angiopathy without gangrene; I10 Essential (primary) hypertension; J45.909 Unspecified asthma, uncomplicated
CPT/HCPCS: A9270

== ENCOUNTER 2025-03-17 10:46 | Day surgery (SDC) | payer OTHER | END 2025-03-17 23:00 | disposition home or self-care (01) | LOC: WOUND 10:46 | DX: I87.313 Chronic venous hypertension (idiopathic) with ulcer of bilateral lower extremity (principal); L97.812 Non-pressure chronic ulcer of other part of right lower leg with fat layer exposed; L97.822 Non-pressure chronic ulcer of other part of left lower leg with fat layer exposed ==

== ENCOUNTER 2025-03-21 05:47 | Day surgery (SDC) | payer OTHER ==
[2025-03-21] MEDS ORDERED: Lidocaine HCl 4% Cream 5 GM ONE (09:15)
== END 2025-03-21 23:00 | disposition home or self-care (01) ==
LOC: WOUND 05:47
DX: I87.313 Chronic venous hypertension (idiopathic) with ulcer of bilateral lower extremity (principal); L97.812 Non-pressure chronic ulcer of other part of right lower leg with fat layer exposed; L97.822 Non-pressure chronic ulcer of other part of left lower leg with fat layer exposed; E11.622 Type 2 diabetes mellitus with other skin ulcer; I87.2 Venous insufficiency (chronic) (peripheral); E11.51 Type 2 diabetes mellitus with diabetic peripheral angiopathy without gangrene; I10 Essential (primary) hypertension; J45.909 Unspecified asthma, uncomplicated
CPT/HCPCS: A9270

== ENCOUNTER 2025-03-28 03:30 | Day surgery (SDC) | payer OTHER ==
[2025-03-28] MEDS ORDERED: Lidocaine HCl 4% Cream 5 GM ONE (08:37)
== END 2025-03-28 23:14 | disposition home or self-care (01) ==
LOC: WOUND 03:30
DX: I87.313 Chronic venous hypertension (idiopathic) with ulcer of bilateral lower extremity (principal); E11.622 Type 2 diabetes mellitus with other skin ulcer; L97.822 Non-pressure chronic ulcer of other part of left lower leg with fat layer exposed; L97.812 Non-pressure chronic ulcer of other part of right lower leg with fat layer exposed; I87.2 Venous insufficiency (chronic) (peripheral); E11.51 Type 2 diabetes mellitus with diabetic peripheral angiopathy without gangrene; I10 Essential (primary) hypertension; J45.909 Unspecified asthma, uncomplicated
CPT/HCPCS: A9270

== ENCOUNTER 2025-04-04 01:37 | Day surgery (SDC) | payer OTHER ==
[2025-04-04] MEDS ORDERED: Lidocaine HCl 4% Cream 5 GM ONE (09:21)
[2025-04-04] MEDS ORDERED: Triamcinolone Acet 0.1% Cream 15 gm ONE (10:03)
== END 2025-04-04 23:21 | disposition home or self-care (01) ==
LOC: WOUND 01:37
DX: I87.313 Chronic venous hypertension (idiopathic) with ulcer of bilateral lower extremity (principal); L97.812 Non-pressure chronic ulcer of other part of right lower leg with fat layer exposed; L97.822 Non-pressure chronic ulcer of other part of left lower leg with fat layer exposed; E11.622 Type 2 diabetes mellitus with other skin ulcer; I87.2 Venous insufficiency (chronic) (peripheral); E11.51 Type 2 diabetes mellitus with diabetic peripheral angiopathy without gangrene; I10 Essential (primary) hypertension; J45.909 Unspecified asthma, uncomplicated
CPT/HCPCS: A9270

== ENCOUNTER 2025-04-12 05:33 | Day surgery (SDC) | payer OTHER ==
[2025-04-12] MEDS ORDERED: Lidocaine HCl 4% Cream 5 GM ONE (15:48)
[2025-04-12] MEDS ORDERED: Triamcinolone Acet 0.1% Cream 15 gm ONE (16:09)
== END 2025-04-12 23:00 | disposition home or self-care (01) ==
LOC: WOUND 05:33
DX: I87.313 Chronic venous hypertension (idiopathic) with ulcer of bilateral lower extremity (principal); E11.622 Type 2 diabetes mellitus with other skin ulcer; L97.825 Non-pressure chronic ulcer of other part of left lower leg with muscle involvement without evidence of necrosis; L97.812 Non-pressure chronic ulcer of other part of right lower leg with fat layer exposed; L97.822 Non-pressure chronic ulcer of other part of left lower leg with fat layer exposed; I87.2 Venous insufficiency (chronic) (peripheral); E11.51 Type 2 diabetes mellitus with diabetic peripheral angiopathy without gangrene; J45.909 Unspecified asthma, uncomplicated; I10 Essential (primary) hypertension
CPT/HCPCS: A9270

== ENCOUNTER 2025-04-18 03:35 | Day surgery (SDC) | payer OTHER ==
[2025-04-18] MEDS ORDERED: Lidocaine HCl 4% Cream 5 GM ONE (08:59)
== END 2025-04-18 23:00 | disposition home or self-care (01) ==
LOC: WOUND 03:35
DX: I87.313 Chronic venous hypertension (idiopathic) with ulcer of bilateral lower extremity (principal); L97.822 Non-pressure chronic ulcer of other part of left lower leg with fat layer exposed; L97.812 Non-pressure chronic ulcer of other part of right lower leg with fat layer exposed; E11.622 Type 2 diabetes mellitus with other skin ulcer; I87.2 Venous insufficiency (chronic) (peripheral); E11.51 Type 2 diabetes mellitus with diabetic peripheral angiopathy without gangrene; J45.909 Unspecified asthma, uncomplicated; I10 Essential (primary) hypertension
CPT/HCPCS: A9270

== ENCOUNTER 2025-04-25 03:18 | Day surgery (SDC) | payer OTHER ==
[2025-04-25] MEDS ORDERED: Lidocaine HCl 4% Cream 5 GM ONE (09:20)
== END 2025-04-25 23:45 | disposition home or self-care (01) ==
LOC: WOUND 03:18
DX: I87.313 Chronic venous hypertension (idiopathic) with ulcer of bilateral lower extremity (principal); L97.812 Non-pressure chronic ulcer of other part of right lower leg with fat layer exposed; L97.822 Non-pressure chronic ulcer of other part of left lower leg with fat layer exposed; E11.622 Type 2 diabetes mellitus with other skin ulcer; I87.2 Venous insufficiency (chronic) (peripheral); E11.51 Type 2 diabetes mellitus with diabetic peripheral angiopathy without gangrene; I10 Essential (primary) hypertension; J45.909 Unspecified asthma, uncomplicated
CPT/HCPCS: A9270

== ENCOUNTER 2025-05-16 08:00 | Day surgery (SDC) | payer OTHER | END 2025-05-16 23:00 | disposition home or self-care (01) | LOC: WOUND 08:00 | DX: I87.313 Chronic venous hypertension (idiopathic) with ulcer of bilateral lower extremity (principal); E11.622 Type 2 diabetes mellitus with other skin ulcer; L97.822 Non-pressure chronic ulcer of other part of left lower leg with fat layer exposed; L97.812 Non-pressure chronic ulcer of other part of right lower leg with fat layer exposed; I87.2 Venous insufficiency (chronic) (peripheral); E11.51 Type 2 diabetes mellitus with diabetic peripheral angiopathy without gangrene ==

== ENCOUNTER 2025-05-23 04:17 | Day surgery (SDC) | payer OTHER | END 2025-05-23 23:00 | disposition home or self-care (01) | LOC: WOUND 04:17 | DX: E11.622 Type 2 diabetes mellitus with other skin ulcer (principal); I87.313 Chronic venous hypertension (idiopathic) with ulcer of bilateral lower extremity; L97.825 Non-pressure chronic ulcer of other part of left lower leg with muscle involvement without evidence of necrosis; L97.812 Non-pressure chronic ulcer of other part of right lower leg with fat layer exposed; L97.822 Non-pressure chronic ulcer of other part of left lower leg with fat layer exposed; I87.2 Venous insufficiency (chronic) (peripheral); E11.51 Type 2 diabetes mellitus with diabetic peripheral angiopathy without gangrene ==

== ENCOUNTER 2025-05-30 00:32 | Day surgery (SDC) | payer OTHER | END 2025-05-30 23:00 | disposition home or self-care (01) | LOC: WOUND 00:32 | DX: E11.622 Type 2 diabetes mellitus with other skin ulcer (principal); L97.812 Non-pressure chronic ulcer of other part of right lower leg with fat layer exposed; L97.822 Non-pressure chronic ulcer of other part of left lower leg with fat layer exposed; I87.313 Chronic venous hypertension (idiopathic) with ulcer of bilateral lower extremity; I87.2 Venous insufficiency (chronic) (peripheral); E11.51 Type 2 diabetes mellitus with diabetic peripheral angiopathy without gangrene | CPT/HCPCS: A9270 ==

== ENCOUNTER → 2025-06-03 | Outpatient (CLI) | payer OTHER | END | disposition home or self-care (01) | LOC: LAB 17:35 → LAB SHORT 17:35 | PROVIDERS: Obstetrics & Gynecology | DX: Z01.419 Encounter for gynecological examination (general) (routine) without abnormal findings (principal) | CPT/HCPCS: 87624; G0123 ==

== ENCOUNTER 2025-06-06 00:54 | Day surgery (SDC) | payer OTHER ==
[2025-06-06] MEDS ORDERED: Lidocaine HCl 4% Cream 5 GM ONE (09:16)
== END 2025-06-06 23:00 | disposition home or self-care (01) ==
LOC: WOUND
DX: I87.313 Chronic venous hypertension (idiopathic) with ulcer of bilateral lower extremity (principal); E11.622 Type 2 diabetes mellitus with other skin ulcer; L97.223 Non-pressure chronic ulcer of left calf with necrosis of muscle; L97.812 Non-pressure chronic ulcer of other part of right lower leg with fat layer exposed; L97.822 Non-pressure chronic ulcer of other part of left lower leg with fat layer exposed; L97.212 Non-pressure chronic ulcer of right calf with fat layer exposed; I87.2 Venous insufficiency (chronic) (peripheral); E11.51 Type 2 diabetes mellitus with diabetic peripheral angiopathy without gangrene
CPT/HCPCS: A9270

== ENCOUNTER 2025-06-13 00:34 | Day surgery (SDC) | payer OTHER | END 2025-06-13 23:00 | disposition home or self-care (01) | LOC: WOUND 00:34 | DX: E11.622 Type 2 diabetes mellitus with other skin ulcer (principal); I87.313 Chronic venous hypertension (idiopathic) with ulcer of bilateral lower extremity; L97.222 Non-pressure chronic ulcer of left calf with fat layer exposed; L97.812 Non-pressure chronic ulcer of other part of right lower leg with fat layer exposed; L97.212 Non-pressure chronic ulcer of right calf with fat layer exposed; L97.822 Non-pressure chronic ulcer of other part of left lower leg with fat layer exposed; I87.2 Venous insufficiency (chronic) (peripheral); E11.51 Type 2 diabetes mellitus with diabetic peripheral angiopathy without gangrene; E11.49 Type 2 diabetes mellitus with other diabetic neurological complication; E11.22 Type 2 diabetes mellitus with diabetic chronic kidney disease; N18.32 Chronic kidney disease, stage 3b; E78.2 Mixed hyperlipidemia | CPT/HCPCS: 36415; 80053; 80061; 82043; 82570; 83036; 85025; A9270 ==

== ENCOUNTER 2025-06-20 00:45 | Day surgery (SDC) | payer OTHER ==
[2025-06-20] MEDS ORDERED: Lidocaine HCl 4% Cream 5 GM ONE (08:46)
== END 2025-06-20 23:00 | disposition home or self-care (01) ==
LOC: WOUND 00:45
DX: E11.622 Type 2 diabetes mellitus with other skin ulcer (principal); I87.313 Chronic venous hypertension (idiopathic) with ulcer of bilateral lower extremity; L97.222 Non-pressure chronic ulcer of left calf with fat layer exposed; L97.812 Non-pressure chronic ulcer of other part of right lower leg with fat layer exposed; I87.2 Venous insufficiency (chronic) (peripheral); E11.51 Type 2 diabetes mellitus with diabetic peripheral angiopathy without gangrene; D72.829 Elevated white blood cell count, unspecified
CPT/HCPCS: 36415; 85025; A9270

== ENCOUNTER 2025-06-27 00:31 | Day surgery (SDC) | payer OTHER ==
[2025-06-27] MEDS ORDERED: Lidocaine HCl 4% Cream 5 GM ONE (08:49)
== END 2025-06-27 23:00 | disposition home or self-care (01) ==
LOC: WOUND 00:31
DX: E11.622 Type 2 diabetes mellitus with other skin ulcer (principal); L97.825 Non-pressure chronic ulcer of other part of left lower leg with muscle involvement without evidence of necrosis; L97.812 Non-pressure chronic ulcer of other part of right lower leg with fat layer exposed; I87.313 Chronic venous hypertension (idiopathic) with ulcer of bilateral lower extremity; I87.2 Venous insufficiency (chronic) (peripheral); J45.909 Unspecified asthma, uncomplicated; I10 Essential (primary) hypertension; E11.51 Type 2 diabetes mellitus with diabetic peripheral angiopathy without gangrene; D72.829 Elevated white blood cell count, unspecified
CPT/HCPCS: 36415; 85025; A9270

== ENCOUNTER 2025-07-04 01:03 | Day surgery (SDC) | payer OTHER ==
[2025-07-04] MEDS ORDERED: Lidocaine HCl 4% Cream 5 GM ONE (09:01)
== END 2025-07-04 23:00 | disposition home or self-care (01) ==
LOC: WOUND 01:03
DX: E11.622 Type 2 diabetes mellitus with other skin ulcer (principal); L97.825 Non-pressure chronic ulcer of other part of left lower leg with muscle involvement without evidence of necrosis; I87.312 Chronic venous hypertension (idiopathic) with ulcer of left lower extremity; I87.2 Venous insufficiency (chronic) (peripheral); E11.51 Type 2 diabetes mellitus with diabetic peripheral angiopathy without gangrene; I10 Essential (primary) hypertension; J45.909 Unspecified asthma, uncomplicated; D72.829 Elevated white blood cell count, unspecified
CPT/HCPCS: 36415; 85025; A6196; A9270

== ENCOUNTER 2025-07-11 00:23 | Day surgery (SDC) | payer OTHER ==
[2025-07-11] MEDS ORDERED: Lidocaine HCl 4% Cream 5 GM ONE (09:00)
== END 2025-07-11 23:22 | disposition home or self-care (01) ==
LOC: WOUND 00:23
DX: E11.622 Type 2 diabetes mellitus with other skin ulcer (principal); I87.312 Chronic venous hypertension (idiopathic) with ulcer of left lower extremity; L97.822 Non-pressure chronic ulcer of other part of left lower leg with fat layer exposed; I87.2 Venous insufficiency (chronic) (peripheral); E11.51 Type 2 diabetes mellitus with diabetic peripheral angiopathy without gangrene; I10 Essential (primary) hypertension; J45.909 Unspecified asthma, uncomplicated
CPT/HCPCS: A6196; A9270

== ENCOUNTER 2025-07-25 01:06 | Day surgery (SDC) | payer OTHER ==
[2025-07-25] MEDS ORDERED: Lidocaine HCl 4% Cream 5 GM ONE (08:38)
== END 2025-07-25 23:00 | disposition home or self-care (01) ==
LOC: WOUND 01:06
DX: E11.622 Type 2 diabetes mellitus with other skin ulcer (principal); I87.313 Chronic venous hypertension (idiopathic) with ulcer of bilateral lower extremity; L97.822 Non-pressure chronic ulcer of other part of left lower leg with fat layer exposed; L97.812 Non-pressure chronic ulcer of other part of right lower leg with fat layer exposed; I87.2 Venous insufficiency (chronic) (peripheral); E11.51 Type 2 diabetes mellitus with diabetic peripheral angiopathy without gangrene; E11.8 Type 2 diabetes mellitus with unspecified complications; J45.909 Unspecified asthma, uncomplicated; I10 Essential (primary) hypertension
CPT/HCPCS: A6196; A9270

== ENCOUNTER 2025-08-01 02:49 | Day surgery (SDC) | payer OTHER ==
[2025-08-01] MEDS ORDERED: Lidocaine HCl 4% Cream 5 GM ONE (08:58)
== END 2025-08-01 23:00 | disposition home or self-care (01) ==
LOC: WOUND 02:49
DX: E11.622 Type 2 diabetes mellitus with other skin ulcer (principal); L97.823 Non-pressure chronic ulcer of other part of left lower leg with necrosis of muscle; L97.812 Non-pressure chronic ulcer of other part of right lower leg with fat layer exposed; I87.313 Chronic venous hypertension (idiopathic) with ulcer of bilateral lower extremity; E11.51 Type 2 diabetes mellitus with diabetic peripheral angiopathy without gangrene; I87.2 Venous insufficiency (chronic) (peripheral); I10 Essential (primary) hypertension; J45.909 Unspecified asthma, uncomplicated
CPT/HCPCS: A6196; A9270

== ENCOUNTER 2025-08-08 00:55 | Day surgery (SDC) | payer OTHER | END 2025-08-08 22:00 | disposition home or self-care (01) | LOC: WOUND 00:55 | DX: E11.622 Type 2 diabetes mellitus with other skin ulcer (principal); L97.825 Non-pressure chronic ulcer of other part of left lower leg with muscle involvement without evidence of necrosis; L97.812 Non-pressure chronic ulcer of other part of right lower leg with fat layer exposed; I87.313 Chronic venous hypertension (idiopathic) with ulcer of bilateral lower extremity; E11.51 Type 2 diabetes mellitus with diabetic peripheral angiopathy without gangrene; I87.2 Venous insufficiency (chronic) (peripheral) | CPT/HCPCS: A6196 ==

== ENCOUNTER 2025-08-15 01:32 | Day surgery (SDC) | payer OTHER ==
[2025-08-15] MEDS ORDERED: Lidocaine HCl 4% Cream 5 GM ONE (08:42)
== END 2025-08-15 23:00 | disposition home or self-care (01) ==
LOC: WOUND 01:32
DX: E11.622 Type 2 diabetes mellitus with other skin ulcer (principal); I87.313 Chronic venous hypertension (idiopathic) with ulcer of bilateral lower extremity; L97.822 Non-pressure chronic ulcer of other part of left lower leg with fat layer exposed; L97.812 Non-pressure chronic ulcer of other part of right lower leg with fat layer exposed; I87.2 Venous insufficiency (chronic) (peripheral); I73.9 Peripheral vascular disease, unspecified; E11.8 Type 2 diabetes mellitus with unspecified complications; I10 Essential (primary) hypertension; J45.909 Unspecified asthma, uncomplicated
CPT/HCPCS: A6196; A9270

== ENCOUNTER 2025-08-23 00:33 | Day surgery (SDC) | payer OTHER ==
[2025-08-23] MEDS ORDERED: Lidocaine HCl 4% Cream 5 GM ONE (08:16)
== END 2025-08-23 23:00 | disposition home or self-care (01) ==
LOC: WOUND 00:33
DX: E11.622 Type 2 diabetes mellitus with other skin ulcer (principal); I87.313 Chronic venous hypertension (idiopathic) with ulcer of bilateral lower extremity; L97.822 Non-pressure chronic ulcer of other part of left lower leg with fat layer exposed; I87.2 Venous insufficiency (chronic) (peripheral); I73.9 Peripheral vascular disease, unspecified; E11.8 Type 2 diabetes mellitus with unspecified complications
CPT/HCPCS: A6196; A9270

== ENCOUNTER 2025-09-05 03:58 | Day surgery (SDC) | payer OTHER ==
[2025-09-05] MEDS ORDERED: Lidocaine HCl 4% Cream 5 GM ONE (09:04)
== END 2025-09-05 23:18 | disposition home or self-care (01) ==
LOC: WOUND 03:58
DX: E11.622 Type 2 diabetes mellitus with other skin ulcer (principal); L97.822 Non-pressure chronic ulcer of other part of left lower leg with fat layer exposed; E11.51 Type 2 diabetes mellitus with diabetic peripheral angiopathy without gangrene; I87.313 Chronic venous hypertension (idiopathic) with ulcer of bilateral lower extremity; I87.2 Venous insufficiency (chronic) (peripheral); Z79.4 Long term (current) use of insulin; Z79.899 Other long term (current) drug therapy; Z88.1 Allergy status to other antibiotic agents; Z88.6 Allergy status to analgesic agent; Z88.8 Allergy status to other drugs, medicaments and biological substances; Z91.02 Food additives allergy status
CPT/HCPCS: A6196; A9270

== ENCOUNTER 2025-09-12 00:59 | Day surgery (SDC) | payer OTHER ==
[2025-09-12] MEDS ORDERED: Lidocaine HCl 4% Cream 5 GM ONE (08:56)
== END 2025-09-12 23:00 | disposition home or self-care (01) ==
LOC: WOUND 00:59
DX: I87.312 Chronic venous hypertension (idiopathic) with ulcer of left lower extremity (principal); E11.51 Type 2 diabetes mellitus with diabetic peripheral angiopathy without gangrene; L97.822 Non-pressure chronic ulcer of other part of left lower leg with fat layer exposed; I10 Essential (primary) hypertension
CPT/HCPCS: A6196; A9270

== ENCOUNTER 2025-09-19 00:27 | Day surgery (SDC) | payer OTHER ==
[2025-09-19] MEDS ORDERED: Lidocaine HCl 4% Cream 5 GM ONE (09:01)
== END 2025-09-19 23:00 | disposition home or self-care (01) ==
LOC: WOUND 00:27
DX: E11.622 Type 2 diabetes mellitus with other skin ulcer (principal); L97.822 Non-pressure chronic ulcer of other part of left lower leg with fat layer exposed; I87.312 Chronic venous hypertension (idiopathic) with ulcer of left lower extremity; E11.51 Type 2 diabetes mellitus with diabetic peripheral angiopathy without gangrene; I87.2 Venous insufficiency (chronic) (peripheral); I10 Essential (primary) hypertension; J45.909 Unspecified asthma, uncomplicated
CPT/HCPCS: A6196; A9270

== ENCOUNTER 2025-09-26 00:19 | Day surgery (SDC) | payer OTHER ==
[2025-09-26] MEDS ORDERED: Lidocaine HCl 4% Cream 5 GM ONE (08:56)
== END 2025-09-26 23:03 | disposition home or self-care (01) ==
LOC: WOUND 00:19
DX: E11.622 Type 2 diabetes mellitus with other skin ulcer (principal); L97.822 Non-pressure chronic ulcer of other part of left lower leg with fat layer exposed; L97.812 Non-pressure chronic ulcer of other part of right lower leg with fat layer exposed; I87.313 Chronic venous hypertension (idiopathic) with ulcer of bilateral lower extremity; I87.2 Venous insufficiency (chronic) (peripheral); E11.51 Type 2 diabetes mellitus with diabetic peripheral angiopathy without gangrene; I10 Essential (primary) hypertension; J45.909 Unspecified asthma, uncomplicated
CPT/HCPCS: A6196; A9270

== ENCOUNTER 2025-10-03 00:45 | Day surgery (SDC) | payer OTHER | END 2025-10-03 22:00 | disposition home or self-care (01) | LOC: WOUND 00:45 | DX: E11.622 Type 2 diabetes mellitus with other skin ulcer (principal); L97.812 Non-pressure chronic ulcer of other part of right lower leg with fat layer exposed; L97.822 Non-pressure chronic ulcer of other part of left lower leg with fat layer exposed; I87.313 Chronic venous hypertension (idiopathic) with ulcer of bilateral lower extremity; E11.51 Type 2 diabetes mellitus with diabetic peripheral angiopathy without gangrene; I87.2 Venous insufficiency (chronic) (peripheral); J45.909 Unspecified asthma, uncomplicated; I10 Essential (primary) hypertension ==

== ENCOUNTER 2025-10-10 00:29 | Day surgery (SDC) | payer OTHER ==
[2025-10-10] MEDS ORDERED: Lidocaine HCl 4% Cream 5 GM ONE (08:26)
== END 2025-10-10 23:00 | disposition home or self-care (01) ==
LOC: WOUND 00:29
DX: E11.622 Type 2 diabetes mellitus with other skin ulcer (principal); L97.822 Non-pressure chronic ulcer of other part of left lower leg with fat layer exposed; I87.312 Chronic venous hypertension (idiopathic) with ulcer of left lower extremity; I87.2 Venous insufficiency (chronic) (peripheral); E11.51 Type 2 diabetes mellitus with diabetic peripheral angiopathy without gangrene; I10 Essential (primary) hypertension; J45.909 Unspecified asthma, uncomplicated
CPT/HCPCS: A6196; A9270

== ENCOUNTER 2025-10-17 07:11 | Day surgery (SDC) | payer OTHER ==
[2025-10-17] MEDS ORDERED: Lidocaine HCl 4% Cream 5 GM ONE (08:40)
== END 2025-10-17 23:21 | disposition home or self-care (01) ==
LOC: WOUND 07:11
DX: E11.622 Type 2 diabetes mellitus with other skin ulcer (principal); I87.312 Chronic venous hypertension (idiopathic) with ulcer of left lower extremity; I10 Essential (primary) hypertension; J45.909 Unspecified asthma, uncomplicated; E11.51 Type 2 diabetes mellitus with diabetic peripheral angiopathy without gangrene; L97.822 Non-pressure chronic ulcer of other part of left lower leg with fat layer exposed; L97.812 Non-pressure chronic ulcer of other part of right lower leg with fat layer exposed
CPT/HCPCS: A6196; A9270

== ENCOUNTER 2025-10-24 02:33 | Day surgery (SDC) | payer OTHER ==
[2025-10-24] MEDS ORDERED: Lidocaine HCl 4% Cream 5 GM ONE (08:45)
== END 2025-10-24 23:58 | disposition home or self-care (01) ==
LOC: WOUND 02:33
DX: E11.622 Type 2 diabetes mellitus with other skin ulcer (principal); L97.822 Non-pressure chronic ulcer of other part of left lower leg with fat layer exposed; I87.312 Chronic venous hypertension (idiopathic) with ulcer of left lower extremity; E11.51 Type 2 diabetes mellitus with diabetic peripheral angiopathy without gangrene; I87.2 Venous insufficiency (chronic) (peripheral); I10 Essential (primary) hypertension; J45.909 Unspecified asthma, uncomplicated
CPT/HCPCS: A6196; A9270

== ENCOUNTER 2025-10-31 00:11 | Day surgery (SDC) | payer OTHER ==
[2025-10-31] MEDS ORDERED: Lidocaine HCl 4% Cream 5 GM ONE (09:08)
== END 2025-10-31 23:00 | disposition home or self-care (01) ==
LOC: WOUND 00:11
DX: E11.622 Type 2 diabetes mellitus with other skin ulcer (principal); L97.822 Non-pressure chronic ulcer of other part of left lower leg with fat layer exposed; I87.312 Chronic venous hypertension (idiopathic) with ulcer of left lower extremity; I87.2 Venous insufficiency (chronic) (peripheral); E11.51 Type 2 diabetes mellitus with diabetic peripheral angiopathy without gangrene; I10 Essential (primary) hypertension; J45.909 Unspecified asthma, uncomplicated
CPT/HCPCS: A6196; A9270

== ENCOUNTER → 2025-11-14 | Day surgery (SDC) | payer OTHER | LOC: WOUND 11:22 | DX: E11.622 Type 2 diabetes mellitus with other skin ulcer (principal); L97.822 Non-pressure chronic ulcer of other part of left lower leg with fat layer exposed; I87.312 Chronic venous hypertension (idiopathic) with ulcer of left lower extremity; I87.2 Venous insufficiency (chronic) (peripheral); E11.51 Type 2 diabetes mellitus with diabetic peripheral angiopathy without gangrene; J45.909 Unspecified asthma, uncomplicated; I10 Essential (primary) hypertension ==